=== PATIENT | female | born 1975 | race Caucasian/White ===

== ENCOUNTER 2019-04-06 07:07 | Emergency (ER) | payer BC ==
[2019-04-06] MEDS ORDERED: TETRACAINE HCL 0.5% OPH SOLN 4 ML OD ONE (09:01)
--- NOTE | 2019-04-06 09:08 | ER Document Report ---
HPI - HPI Patient complains to provider of: Eye irritation Time Seen by Provider: 04/06/19 09:01 Onset: Yesterday Onset/Duration: Sudden Severity: Severe Pain Level: 4 Context: Patient presents to the emergency department with complaints of right eye irritation. Patient reports she had her contacts on yesterday and her eye started feeling like it was irritated. She took her contacts out. She denies trauma. Denies history of eye injury. Denies other symptoms such as fever vomiting diarrhea. Is not wearing contacts now. Reports she is light sensitive denies problems with her vision. Associated Symptoms: None Exacerbated by: Denies, Other Relieved by: Denies Similar symptoms previously: No Recently seen / treated by doctor: No - REPRODUCTIVE Reproductive: DENIES: : Past Medical History - General Information source: Patient - Social History Smoking Status: Unknown if Ever Smoked Cigarette use (# per day): No Frequency of alcohol use: None Family History: None Patient has suicidal ideation: No Patient has homicidal ideation: No - Medical History Medical History: Negative Surgical Hx: Negative Vertical Provider Document - CONSTITUTIONAL Agree With Documented VS: Yes Exam Limitations: No Limitations General Appearance: No Apparent Distress - INFECTION CONTROL TRAVEL OUTSIDE OF THE [place] IN LAST 30 DAYS: No - HEENT HEENT: Atraumatic, Normocephalic - NECK Neck: Supple - RESPIRATORY Respiratory: No Respiratory Distress - CARDIOVASCULAR Cardiovascular: Regular Rate - MUSCULOSKELETAL/EXTREMETIES Musculoskeletal/Extremeties: MAEW, FROM - NEURO Level of Consciousness: Awake, Alert, Appropriate Motor/Sensory: No Motor Deficit - DERM Integumentary: Warm, Dry Course - Re-evaluation Re-evalutation: 04/06/19 10:30 Patient had immediate relief of irritation after tetracaine was applied. Corneal abrasion noted. Patient will be treated with Cipro due to contact we ars. Patient was also instructed on the importance of follow-up with ophthalmology. Instructed to return to the emergency department for any kind of increased pain difficulty with her vision. She verbalized understanding to all instructions. She was also instructed to not wear contacts for at least 1 week. Or follow-up with ophthalmology. Dictation of this chart was performed using voice recognition software; therefore, there may be some unintended grammatical errors. Procedures - Eye Procedure Right Alcaine Drops Administered: Yes - right Fluorescein applied: Right Antibiotic Oinment/Drps Admin: Right eye Slit lamp used: No Notes: 04/06/19 10:28 Patient tolerated procedure well reports immediate relief from irritation after tetracaine was applied. Boudreaux lamp utilized. Corneal abrasion noted at 07:00. Patient will be treated with Ciprodex since she wears contacts she was instructed on the importance of monitoring her eye return to the emergency department for increased pain. Eyes picture: 1 - small abrasion noted after fluorescein applied Discharge - Discharge Clinical Impression: Irritation of right eye Corneal abrasion due to contact lens Qualifiers: Laterality: right Qualified Code(s): H18.821 - Corneal disorder due to contact lens, right eye Condition: Stable Disposition: HOME, SELF-CARE Instructions: Ciprofloxacin ([facility]), Opthalmology Additional Instructions: *You have been evaluated for eye irritation, corneal abrasion *Use eye ointment- Apply 1/2 inch ribbon into the conjunctival sac right eye every 4 hours for 5 days *Good hand washing-do not wear your contacts for 1 week or until follow-up with vice squad police officer *Follow up with an vice squad police officer within 1 week for recheck *Return to ED for worsening condition, changes, needs, concerns, eye pain Monitor your blood pressure. Your blood pressure was elevated today. This may be because you were anxious, in pain or because you need medication. It is important to follow up with your primary care provider for full evaluation. Forms: Elevated Blood Pressure
[2019-04-06] MEDS ORDERED: CIPROFLOXACIN HCL 0.3% OPH OINTMENT 3.5 GM OD ONE (09:21)
[2019-04-06 09:34] VITALS: BP 123/83
== END 2019-04-06 09:42 | disposition home or self-care (01) ==
LOC: ER 07:07
DX: H18.821 Corneal disorder due to contact lens, right eye (principal)
CPT/HCPCS: 99283; J3490 ×2